=== PATIENT | female | born 1985 | race Caucasian/White ===

== ENCOUNTER 2021-10-15 12:21 | Emergency (ER) | payer BC, MEDICAID, SELFPAY ==
[2021-10-15 12:24] VITALS: BP 123/80; PULSE 91; RESP 16; TEMP 35.8; O2SAT 97; BMI 31.6
--- NOTE | 2021-10-15 14:50 | EX.ED.DYSGE1 ---
HPI History of Present Illness Chief Complaint: Dizziness Narrative Narrative: Patient has past medical history of gastric bypass in April. She is have problems with dumping syndrome, and diarrhea. She states that yesterday, she had 4 episodes of diarrhea and felt flushed and lightheaded. She was told by her doctors to come to the ED for IV fluids. She states that as she had bypass surgery she has not had any nausea or vomiting. No fever. She only drinks protein shakes for nourishment because when she tries to eat she gets abdominal pain. She presents mainly for the lightheadedness and dizziness. She denies any chest pain or shortness of breath. No other symptoms. She is here mainly for IV fluid bolus. She felt like this previously and had to come to the emergency department in May of this year. PFSH PFS Medical History no medical history Allergy/AdvReac Type Severity Reaction Status Date / Time Penicillins [PCN] Allergy Swelling Verified 10/15/21 12:23 latex AdvReac Other Verified 10/15/21 12:23 Social History Smoking Status: Unknown if ever smoked ROS ROS ED ROS Narrative Constitutional: No fever, no chills. HEENT: No sore throat. No neck pain. No loss of vision. No rhinorrhea. Cardiovascular: No chest pain. No palpitations. No pedal edema. Respiratory: No cough, no shortness of breath. Abdominal: No abdominal pain. No nausea. No vomiting. 4 episodes of diarrhea, nonbloody. Genitourinary: No dysuria. No hematuria. Musculoskeletal: No myalgias. No arthralgias. Neurologic: No headaches. Positive, mild dizziness. Positive lightheadedness. Skin: No rash. No change in color. Psychiatric: No depression. No anxiety. EXAM Physical Exam Narrative Exam Narrative: Afebrile. Vital signs noted. HEENT: Normocephalic. Atraumatic. PERRL, EOMI. Neck soft and supple. No point tenderness or step off. Cardiovascular: Regular rate and rhythm. No murmurs, rubs, or gallops appreciated. Respiratory: No tachypnea. Lungs clear to auscultation bilaterally. Gastrointestinal: Abdomen soft, nontender, with normoactive bowel sounds. No rebound or guarding. Neurological: Awake. Alert. Nonfocal, nonlateralizing. Skin: No rash. Normal color. No pallor. Musculoskeletal: No pedal edema. Full range of motion extremities. Const Vital Signs: 10/15/21 12:24 Temperature 96.4 F L Temperature Source Temporal Pulse Rate 91 Respiratory Rate 16 Blood Pressure 123/80 H Blood Pressure Mean 94 Pulse Ox 97 Oxygen Delivery Method Nasal Cannula MDM MDM MDM Narrative Medical decision making narrative: Patient is not tachycardic here. She has normal blood pressure. She will be bolused IV fluids. I will check a CMP and orthostatics. I was informed by the RN, that the patient wished to leave, and did so before laboratories were drawn and before I could speak with her directly.. She left AGAINST MEDICAL ADVICE without signing a form. She was in stable condition. Discharge Plan Triage Chief Complaint: Dizziness ED Provider: Yvon Franco Dx/Rx/DC Orders Clinical Impression: Lightheadedness, Diarrhea, Left against medical advice Primary Care Provider: De Eduardo Referrals: De Eduardo MD [Primary Care Provider] - Disposition Disposition: Against Medical Advice Discharge Date/Time: 10/15/21 15:31
== END 2021-10-15 15:31 | disposition left against medical advice (07) ==
PROVIDERS: Emergency Provider Emergency Medicine; PCP Family Medicine
DX: R42 Dizziness and giddiness (principal); R19.7 Diarrhea, unspecified; Z53.21 Procedure and treatment not carried out due to patient leaving prior to being seen by health care provider; Z98.84 Bariatric surgery status
CPT/HCPCS: 96360; 99281; A4216